=== PATIENT | female | born 1995 | race Hispanic/Latino ===

== ENCOUNTER 2019-08-21 21:07 | Inpatient (IN) | payer OTHER ==
[~2019-08-21] VITALS: Ht 160 cm; Wt 120.2 kg
[2019-08-21] MEDS ORDERED: VANCOMYCIN 1GM/NS 250 ML 250 ML IV ONE (21:34)
[2019-08-21] MEDS ORDERED: PIPER-TAZ 3.375 GM 50 ML IV STA (21:34)
[2019-08-21] MEDS ORDERED: DEXTROSE 50% SYRINGE 50 ML IV PRN (21:45)
[2019-08-21] MEDS ORDERED: ONDANSETRON HCL INJ 2MG/ML 2ML 2 MG/ML VIAL IV PRN (21:45)
[2019-08-21 21:59] LABS: BILIRUBIN,URINE NEGATIVE (NEGATIVE); CLARITY,URINE SL CLOUDY (CLEAR); COLOR,URINE YELLOW (YELLOW); KETONES,URINE NEGATIVE (NEGATIVE); LEUKOCYTE ESTERASE ,URINE NEGATIVE (NEGATIVE); NITRITE,URINE NEGATIVE (NEGATIVE); PROTEIN,URINE DIPSTICK 1+ (NEGATIVE); URINE UROBILINOGEN 0.2 mg/dL (0.2 - 1)
[2019-08-21] MEDS ORDERED: PIPER-TAZ 3.375 GM 50 ML IV SCH (22:00)
[2019-08-21 22:01] LABS: EOSINOPHILS % 0.2 % (0.0-6.0); HEMATOCRIT 37.5 % (34.2-44.1); HEMOGLOBIN 12.1 g/dL (12.0-16.0); LYMPHOCYTES % 2.7 % (18.0-39.1); MEAN CORPUSCULAR HEMOGLOBIN 25.5 pg (28-32); MEAN CORPUSCULAR HGB CONC 32.3 g/dL (31-35); MEAN CORPUSCULAR VOLUME 78.9 fL (81-99); MONOCYTES % 1.1 % (4.4-11.3); NEUTROPHILS % 11.3 % (38.7-80.0); PLATELET COUNT 304 x10e3/uL (140-360); RED BLOOD COUNT 4.75 x10e6/uL (3.6-5.1); RED CELL DISTRIBUTION WIDTH 13.2 % (11.7-14.4)
[2019-08-21 22:11] LABS: AMORPHOUS SEDIMENT,URINE MODERATE (FEW); BACTERIA,URINE MODERATE /HPF; EPITHELIAL CELLS,URINE FEW /LPF; WBC,URINE (MAN) 0-5 /HPF (0-5)
[2019-08-21 22:15] LABS: ALANINE AMINOTRANSFERASE 86 IU/L (0-55); ALBUMIN 3.3 g/dL (3.5-5.0); ALKALINE PHOSPHATASE 85 IU/L (40-150); ANION GAP 16.7 mmol/L (8-16); BLOOD UREA NITROGEN 10 mg/dL (7-26); BUN/CREATININE RATIO 15 (6-25); CALCIUM 9.2 mg/dL (8.4-10.2); CARBON DIOXIDE 23 mmol/L (22-29); CHLORIDE 100 mmol/L (98-107); CREATININE, SERUM 0.65 mg/dL (0.57-1.11); EST GLOMERULAR FILTRATION RATE > 60 ML/MIN (60-); GLUCOSE 247 mg/dL (74-118); POTASSIUM 3.7 mmol/L (3.5-5.1); SODIUM 136 mmol/L (136-145)
[2019-08-21 22:17] LABS: PREGNANCY TEST, URINE NEGATIVE (NEGATIVE)
[2019-08-21] MEDS: ACETAMINOPHEN 325 MG TAB PO PRN (23:02)
[2019-08-21 23:12] VITALS: BP 126/72
[2019-08-22] VITALS (8 sets, daily range): BP systolic 108–126; BP diastolic 55–72
[2019-08-22] MEDS ORDERED: PNEUMOCOCCAL VACCINE POLYVALENT 23 MCG/0.5 ML VIAL IM SCH ×2 (00:13→05:15)
[2019-08-22] MEDS ORDERED: TYLENOL WITH C1 EACH PO (00:17)
[2019-08-22] MEDS ORDERED: SIVEXTRO200 M1 PO (00:17)
[2019-08-22] MEDS ORDERED: CLINDAMYCIN HC150 MG PO (00:17)
[2019-08-22] MEDS: SODIUM CHLORIDE 0.9% 1000ML 1,000 ML IV SCH ×3 (00:33→15:39)
[2019-08-22] MEDS: INSULIN REGULAR, HUMAN 100 UNIT/1 ML 3ML VIAL SQ SCH ×5 (00:33→20:47)
[2019-08-22 06:28] LABS: ANION GAP 13.6 mmol/L (8-16); BLOOD UREA NITROGEN 8 mg/dL (7-26); BUN/CREATININE RATIO 12 (6-25); CARBON DIOXIDE 23 mmol/L (22-29); CHLORIDE 104 mmol/L (98-107); CREATININE, SERUM 0.68 mg/dL (0.57-1.11); EST GLOMERULAR FILTRATION RATE > 60 ML/MIN (60-); POTASSIUM 3.6 mmol/L (3.5-5.1); SODIUM 137 mmol/L (136-145)
[2019-08-22 06:29] LABS: ALANINE AMINOTRANSFERASE 68 IU/L (0-55); ALBUMIN/GLOBULIN RATIO 0.9 (0.8-2.0); ALKALINE PHOSPHATASE 81 IU/L (40-150); CALCIUM 8.8 mg/dL (8.4-10.2); GLUCOSE 161 mg/dL (74-118)
[2019-08-22 07:54] LABS: HEMATOCRIT 33.9 % (34.2-44.1); HEMOGLOBIN 11.1 g/dL (12.0-16.0); MEAN CORPUSCULAR HEMOGLOBIN 25.7 pg (28-32); MEAN CORPUSCULAR HGB CONC 32.7 g/dL (31-35); MEAN CORPUSCULAR VOLUME 78.5 fL (81-99); RED BLOOD COUNT 4.32 x10e6/uL (3.6-5.1); RED CELL DISTRIBUTION WIDTH 13.3 % (11.7-14.4)
[2019-08-22 07:55] LABS: BASOPHILS % 0.2 % (0.0-1.0); EOSINOPHILS % 2.3 % (0.0-6.0); LYMPHOCYTES % 21.2 % (18.0-39.1); MONOCYTES % 8.6 % (4.4-11.3); NEUTROPHILS % 66.9 % (38.7-80.0); PLATELET COUNT 295 x10e3/uL (140-360)
[2019-08-22 09:22] LABS: LYMPHOCYTES # (AUTO) 2.8 (1.0-3.2); NEUTROPHILS # (AUTO) 8.9 (2.1-6.9)
[2019-08-22 09:23] LABS: EOSINOPHILS # (AUTO) 0.3 (0.0-0.4); MONOCYTES # (AUTO) 1.2 (0.2-0.8)
[2019-08-22] MEDS: VANCOMYCIN 1GM/NS 250 ML 250 ML IV SCH ×2 (09:26→21:14)
[2019-08-22] MEDS ORDERED: PIPER-TAZ 3.375 GM 50 ML IV SCH (10:00)
[2019-08-22] MEDS: PIPER-TAZ 3.375 GM 50 ML IV SCH ×2 (12:19→20:10)
--- NOTE | 2019-08-22 17:00 | Diagnostic Imaging Report ---
EXAM: CT Abdomen and Pelvis WITH intravenous contrast INDICATION: Abdominal abscess COMPARISON: None. TECHNIQUE: Abdomen and pelvis were scanned utilizing a multidetector helical scanner from the lung base to the pubic symphysis after administration of IV contrast. Coronal and sagittal reformations were obtained. Routine protocol was performed. Scan was performed during portal venous phase. IV CONTRAST: 100mL of Isovue 370 ORAL CONTRAST: Water RADIATION DOSE: Total DLP: 812.9 mGy*cm Dose modulation, iterative reconstruction, and/or weight based adjustment of the mA/kV was utilized to reduce the radiation dose to as low as reasonably achievable. FINDINGS: LOWER THORAX: Left lower lobe dependent subsegmental atelectasis. HEPATOBILIARY: Hepatomegaly to 20 cm. Severe diffuse hepatic steatosis. No focal liver lesion. No biliary ductal dilation. Unremarkable gallbladder. SPLEEN: No splenomegaly. PANCREAS: No focal masses or ductal dilatation. ADRENALS: No adrenal nodules. KIDNEYS/URETERS: No hydronephrosis, stones, or solid mass lesions. PELVIC ORGANS/BLADDER: Unremarkable. PERITONEUM / RETROPERITONEUM: No free air or fluid. LYMPH NODES: No lymphadenopathy. VESSELS: Unremarkable. GI TRACT: No abnormal bowel thickening. No bowel obstruction. Normal appendix. BONES AND SOFT TISSUES: 6.2 x 3.7 cm subcutaneous fluid collection in the anterior abdominal wall/pannus. There is mild peripheral enhancement. No acute osseous injury. No suspicious lytic or blastic lesions. IMPRESSION: 6.2 x 3.7 cm subcutaneous fluid collection in the right anterior abdominal wall/pannus consistent with subcutaneous abscess. Hepatomegaly and diffuse hepatic steatosis. Signed by: Rose Gutierrez MD on 08/22/2019 4:57 PM
--- OUTSIDE RECORDS SUMMARY | 2019-08-22 19:30 | XMS REPORT ---
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 Allergies, Adverse Reactions, Alerts Allergy Name Allergy Type Status Severity Reaction(s) Onset Date Inactive Date Treating Clinician Comments No Known Allergies DA Active U 2018-09-17 00:00:00 Penicillins DA Active MD 2013-07-09 00:00:00 Medications This patient has no known medications. Encounters Start Date/Time End Date/Time Encounter Type Admission Type Attending Clinicians Care Facility Care Department Encounter ID 2017-12-02 10:22:46 2017-12-02 10:22:46 Outpatient [facility] [id number] Results Test Description Test Time Test Comments Text Results Atomic Results Result Comments CT ABDOMEN/PELVIS W 2019-08-22 16:53:00 [place] [address] Patient Name: MELANIE HARDIN MR #: [id number] : 1995 Age/Sex: 24/F Req #: [id number] Adm Physician: SILVANA RIZZO MD Ordered by: SILVANA RIZZO MD Report #: [id number] Location: MED/SURG3 Room/Bed: [facility] Procedure: [id number] CT/CT ABDOMEN/PELVIS W Exam Date: Exam Time: REPORT STATUS: Signed EXAM: CT Abdomen and Pelvis WITH intravenous contrast INDICAT ION: Abdominal abscess COMPARISON: None. TECHNIQUE: Abdomen and pelvis were scanned utilizing a multidetector helical scanner from the lung base to the pubic symphysis after administration of IV contrast. Coronal and sagittal reformations were obtained. Routine protocol was performed. Scan was performed during portal venous phase. IV CONTRAST: 100mL of Isovue 370 ORAL CONTRAST: Water RADIATION DOSE: Total DLP: 812.9 mGy*cm Dose modulation, iterative reconstruction, and/or weight based adjustment of the mA/kV was utilized to reduce the radiation dose to as low as reasonably achievable. FINDINGS: LOWER THORAX: Left lower lobe dependent subsegmental atelectasis. HEPATOBILIARY: Hepatomegaly to 20 cm. Severe diffuse hepatic steatosis. No focal liver lesion. No biliary ductal dilation. Unremarkable gallbladder. SPLEEN: No splenomegaly. PANCREAS: No focal masses or ductal dilatation. ADRENALS: No adrenal nodules. KIDNEYS/URETE RS: No hydronephrosis, stones, or solid mass lesions. PELVIC ORGANS/BLADDER: Unremarkable. PERITONEUM / RETROPERITONEUM: No free air or fluid. LYMPH NODES: No lymphadenopathy. VESSELS: Unremarkable. GI TRACT: No abnormal bowel thickening. No bowel obstruction. Normal appendix. BONES AND SOFT TISSUES: 6.2 x 3.7 cm subcutaneous fluid collection in the anterior abdominal wall/pannus. There is mild peripheral enhancement. No acute osseous injury. No suspicious lytic or blastic lesions. IMPRESSION: 6.2 x 3.7 cm subcutaneous fluid collection in the right anterior abdominal wall/pannus consistent with subcutaneous abscess. Hepatomegaly and diffuse hepatic steatosis. Signed by: Obi Yuen MD on 08/22/2019 4:57 PM Dictated By: OBI YUEN MD 56 Transcribed By: YESI on 08/22/191656 COPY TO: SILVANA RIZZO MD
[2019-08-22] MEDS ORDERED: IOPAMIDOL 370 MG/ML 200 ML INFUS..BTL INJ ONE (19:35)
[2019-08-22] MEDS ORDERED: SODIUM CHLORIDE 0.9% 50ML 50 ML ONE (19:35)
[2019-08-22] MEDS: ACETAMINOPHEN 325 MG TAB PO PRN (20:10)
[2019-08-23] VITALS (8 sets, daily range): BP systolic 113–127; BP diastolic 58–68
[2019-08-23] MEDS: SODIUM CHLORIDE 0.9% 1000ML 1,000 ML IV SCH ×3 (04:55→21:39)
[2019-08-23] MEDS: PIPER-TAZ 3.375 GM 50 ML IV SCH ×3 (04:55→21:01)
[2019-08-23 05:41] LABS: BASOPHILS % 0.3 % (0.0-1.0); EOSINOPHILS # (AUTO) 0.2 (0.0-0.4); EOSINOPHILS % 1.7 % (0.0-6.0); HEMATOCRIT 35.3 % (34.2-44.1); HEMOGLOBIN 11.6 g/dL (12.0-16.0); LYMPHOCYTES # (AUTO) 2.4 (1.0-3.2); LYMPHOCYTES % 19.5 % (18.0-39.1); MEAN CORPUSCULAR HEMOGLOBIN 25.8 pg (28-32); MEAN CORPUSCULAR HGB CONC 32.9 g/dL (31-35); MEAN CORPUSCULAR VOLUME 78.4 fL (81-99); MONOCYTES % 8.5 % (4.4-11.3); NEUTROPHILS # (AUTO) 8.4 (2.1-6.9); PLATELET COUNT 289 x10e3/uL (140-360); RED CELL DISTRIBUTION WIDTH 13.4 % (11.7-14.4)
[2019-08-23 06:02] LABS: ALANINE AMINOTRANSFERASE 59 IU/L (0-55); ALBUMIN 2.9 g/dL (3.5-5.0); ALBUMIN/GLOBULIN RATIO 0.8 (0.8-2.0); ALKALINE PHOSPHATASE 80 IU/L (40-150); ANION GAP 14.7 mmol/L (8-16); BLOOD UREA NITROGEN 7 mg/dL (7-26); BUN/CREATININE RATIO 9 (6-25); CALCIUM 8.7 mg/dL (8.4-10.2); CARBON DIOXIDE 21 mmol/L (22-29); CHLORIDE 104 mmol/L (98-107); CREATININE, SERUM 0.76 mg/dL (0.57-1.11); EST GLOMERULAR FILTRATION RATE > 60 ML/MIN (60-); GLUCOSE 180 mg/dL (74-118); POTASSIUM 3.7 mmol/L (3.5-5.1); SODIUM 136 mmol/L (136-145)
[2019-08-23] MEDS: INSULIN REGULAR, HUMAN 100 UNIT/1 ML 3ML VIAL SQ SCH ×4 (07:30→21:00)
[2019-08-23] MEDS: VANCOMYCIN 1GM/NS 250 ML 250 ML IV SCH ×2 (09:00→21:39)
[2019-08-23] MEDS ORDERED: HYDROMORPHONE 1MG/1ML INJ IV PRN (10:30)
--- NOTE | 2019-08-23 17:35 | Operative Report ---
DATE OF PROCEDURE: 08/23/2019 SURGEON: Mu Plummer MD PREOPERATIVE DIAGNOSES: Cellulitis and abscess of the abdominal wall. POSTOPERATIVE DIAGNOSES: Cellulitis and abscess of the abdominal wall. OPERATION PERFORMED: Incision and drainage of abscess of the abdominal wall. ANESTHESIA: General. COMPLICATIONS: None. ESTIMATED BLOOD LOSS: Minimal. DESCRIPTION OF PROCEDURE: With the patient lying in bed in the supine position under good general anesthesia, the abdomen was prepped with Betadine solution and draped in the usual manner. There was a bulging abscess at the pelvic fold on the right side. The skin overlying this area was then opened and immediately a large gush of purulent material was obtained. Cultures were taken. Some skin from the area was removed and a large abscess cavity was entered with a large amount of pus encountered, all of this was aspirated. A second counterincision was then made at the bottom of the abscess cavity and the two incisions were then joined with the quarter-inch Afshin acting as a seton, which was sewn to itself to maintain the wounds open. After this was done, hemostasis was ascertained. The wound was then copiously irrigated with dilute Betadine solution. It was packed with 1 inch iodoform gauze. A dressing was applied. The sponge, lap, and needle count was correct. The patient tolerated the procedure well and returned to the recovery room in stable condition. Mu Plummer MD JLR/MODL /[id number]
[2019-08-23] MEDS ORDERED: PROPOFOL IV EMULSION 10 MG/ML 20 ML VIAL ONE (18:05)
[2019-08-23] MEDS ORDERED: ONDANSETRON HCL INJ 2MG/ML 2ML 2 MG/ML VIAL ONE (18:05)
[2019-08-23] MEDS ORDERED: ROCURONIUM BROMIDE 10 MG/ML 5ML VIAL ONE (18:05)
[2019-08-23] MEDS ORDERED: DEXAMETHASONE SOD PHOS INJ 4 MG/ML VIAL ONE (18:05)
[2019-08-23] MEDS ORDERED: LIDOCAINE HCL 2% LOCAL INJ 5 ML SDV VIAL INJ ONE (18:05)
[2019-08-23] MEDS ORDERED: SEVOFLURANE INHAL SOLN 250 ML PEN BTL ONE (18:05)
[2019-08-23] MEDS ORDERED: FENTANYL CITRATE/PF 100MCG/2 ML INJ ONE (18:15)
[2019-08-23] MEDS ORDERED: MIDAZOLAM HCL 2 MG/2 ML VIAL ONE (18:15)
[2019-08-24] VITALS (8 sets, daily range): BP systolic 108–133; BP diastolic 50–87
[2019-08-24] MEDS: PIPER-TAZ 3.375 GM 50 ML IV SCH ×3 (03:52→20:48)
[2019-08-24 05:59] LABS: BASOPHILS % 0.2 % (0.0-1.0); EOSINOPHILS # (AUTO) 0.1 (0.0-0.4); EOSINOPHILS % 0.5 % (0.0-6.0); HEMOGLOBIN 11.2 g/dL (12.0-16.0); LYMPHOCYTES # (AUTO) 2.9 (1.0-3.2); LYMPHOCYTES % 21.4 % (18.0-39.1); MEAN CORPUSCULAR HEMOGLOBIN 25.2 pg (28-32); MEAN CORPUSCULAR VOLUME 78.7 fL (81-99); MONOCYTES % 7.5 % (4.4-11.3); NEUTROPHILS # (AUTO) 9.3 (2.1-6.9); NEUTROPHILS % 69.4 % (38.7-80.0); PLATELET COUNT 344 x10e3/uL (140-360); RED BLOOD COUNT 4.45 x10e6/uL (3.6-5.1)
[2019-08-24 06:30] LABS: ALANINE AMINOTRANSFERASE 45 IU/L (0-55); ALBUMIN 2.8 g/dL (3.5-5.0); ALBUMIN/GLOBULIN RATIO 0.8 (0.8-2.0); ALKALINE PHOSPHATASE 76 IU/L (40-150); BLOOD UREA NITROGEN 8 mg/dL (7-26); BUN/CREATININE RATIO 11 (6-25); CALCIUM 8.6 mg/dL (8.4-10.2); CARBON DIOXIDE 21 mmol/L (22-29); CHLORIDE 106 mmol/L (98-107); CREATININE, SERUM 0.72 mg/dL (0.57-1.11); EST GLOMERULAR FILTRATION RATE > 60 ML/MIN (60-); GLUCOSE 191 mg/dL (74-118); SODIUM 136 mmol/L (136-145)
[2019-08-24] MEDS: HYDROCODONE/APAP 7.5MG-325MG 1 EA TAB PO PRN (07:00)
[2019-08-24] MEDS: INSULIN REGULAR, HUMAN 100 UNIT/1 ML 3ML VIAL SQ SCH ×4 (08:27→20:48)
[2019-08-24] MEDS: VANCOMYCIN 1GM/NS 250 ML 250 ML IV SCH ×2 (08:28→22:35)
[2019-08-24] MEDS: SODIUM CHLORIDE 0.9% 1000ML 1,000 ML IV SCH (22:36)
[2019-08-25] VITALS: BP 105/59
[2019-08-25 04:00] VITALS: BP 101/47
[2019-08-25] MEDS: PIPER-TAZ 3.375 GM 50 ML IV SCH ×2 (04:36→11:33)
[2019-08-25] MEDS: SODIUM CHLORIDE 0.9% 1000ML 1,000 ML IV SCH (06:01)
[2019-08-25] MEDS: INSULIN REGULAR, HUMAN 100 UNIT/1 ML 3ML VIAL SQ SCH ×2 (07:30→11:14)
[2019-08-25 07:31] VITALS: BP 111/61
[2019-08-25] MEDS: VANCOMYCIN 1GM/NS 250 ML 250 ML IV SCH (08:20)
[2019-08-25 09:24] VITALS: BP 111/61
[2019-08-25 11:09] VITALS: BP 124/58
[2019-08-25 15:16] VITALS: BP 116/58
[2019-08-25] MEDS: HYDROCODONE/APAP 7.5MG-325MG 1 EA TAB PO PRN (16:38)
--- NOTE | 2019-08-26 05:08 | Discharge Summary ---
HISTORY: The patient is a 24-year-old female patient of mine, presented to the hospital with a right lower abdominal severe pain and swelling. ADMITTING IMPRESSION: Diagnosis: Right abdominal wall abscess, cellulitis in a diabetic patient and morbidly obese patient. HOSPITAL COURSE SUMMARY: The patient was treated with IV vancomycin and Zosyn and surgery consult done, Dr. Plummer. The patient had a CT scan of the abdomen was done, which showed abscess. The patient was taken to the operation theater and the patient had I and D done. The patient was given postop care and now upon stabilization, the patient will be discharged home on clindamycin and Bactrim. The patient was advised to continue her medication Janumet for the diabetes. She was advised to follow up with me on Wednesday in 3 days. MD ERON Marks/MODL /[id number]
[2019-08-26] MEDS ORDERED: NEOMYCIN/POLYMYXIN/BACITRACIN 15 GM TUBE TOP SCH (09:00)
== END 2019-08-25 18:40 | disposition home or self-care (01) | DRG 580 ==
LOC: ER 21:07 → ERHOLD 22:30 → MED/SURG3 23:26
PROVIDERS: ADMIT Internal Medicine; ATTEND Internal Medicine
PROC: 0J980ZZ Drainage of Abdomen Subcutaneous Tissue and Fascia, Open Approach (ICD-10-PCS; principal; 2019-08-23 09:37)
DX: L02.211 Cutaneous abscess of abdominal wall (principal); Z68.42 Body mass index [BMI] 45.0-49.9, adult; E66.01 Morbid (severe) obesity due to excess calories; E11.9 Type 2 diabetes mellitus without complications
CPT/HCPCS: 36415; 74177; 80053; 80202; 81001; 81025; 82948; 85025; 87040; 87071; 87075; 87205; 96372; 99284; J1100; J1817; J2001; J2250; J2405; J2543; J3010; J3370; J7030; Q9967

== ENCOUNTER 2019-09-01 19:32 | Emergency (ER) | payer OTHER ==
[~2019-09-01] VITALS: Ht 160 cm; Wt 117.5 kg
[~2019-09-01 19:32] MED LIST: CLINDAMYCIN HC150 MG PO; SIVEXTRO200 M1 PO; TYLENOL WITH C1 EACH PO
[2019-09-01] MEDS ORDERED: FAMOTIDINE 20 MG/2 ML VIAL IV STA (20:37)
[2019-09-01] MEDS ORDERED: DEXAMETHASONE SOD PHOS 10 MG/1 ML VIAL IV ONE (20:45)
[2019-09-01] MEDS ORDERED: PEPCID20 MG PO (21:24)
[2019-09-01 21:38] VITALS: BP 105/60
== END 2019-09-01 22:57 | disposition home or self-care (01) ==
LOC: FSED 19:32
DX: L50.0 Allergic urticaria (principal); L27.0 Generalized skin eruption due to drugs and medicaments taken internally; T37.0X5A Adverse effect of sulfonamides, initial encounter
CPT/HCPCS: 81025; 96374; 96376; 99283; J1100

== ENCOUNTER 2022-09-05 23:08 | Emergency (ER) | payer SELFPAY ==
[~2022-09-05] VITALS: Ht 160 cm; Wt 117.5 kg
[~2022-09-05 23:08] MED LIST changes: +PEPCID20 MG PO
[2022-09-05] MEDS ORDERED: LIDOCAINE HCL 1% LOCAL INJ 20 ML VIAL INJ STA (23:10)
[2022-09-05] MEDS ORDERED: CIPRO500 MG PO (23:19)
== END 2022-09-05 23:45 | disposition home or self-care (01) ==
LOC: ER 23:10
DX: L03.032 Cellulitis of left toe (principal)
CPT/HCPCS: 99282